=== PATIENT | male | born 1960 | race Caucasian/White ===

== ENCOUNTER → 2016-09-06 | Outpatient (CLI) | payer BC ==
[~2016-09-06] MED LIST: ALTA5CAP3 PO; ATORVASTATIN PO; FLOM5CAP PO; INVO300T PO; JANU100T PO; METF500T4 PO; PROS5TAB PO
== END ==
LOC: M SMT 15:05
PROVIDERS: ATTEND Urology
DX: Z12.5 Encounter for screening for malignant neoplasm of prostate (principal)
CPT/HCPCS: 36415; G0103

== ENCOUNTER → 2017-12-22 | Outpatient (REF) | payer BC ==
[2017-12-22 13:43] LABS: BACTERIA, URINE AUTO 2+ (NEGATIVE); RBC, URINE AUTO 15 /HPF (0-3); SQUAMOUS EPITHELIAL CELL UR AU 0 /HPF (0-6); WBC, URINE AUTO TNTC /HPF (0-3)
== END ==
LOC: M LAB REF 12:37
DX: R30.0 Dysuria (principal)
CPT/HCPCS: 81015

== ENCOUNTER → 2018-01-04 | Outpatient (REF) | payer BC ==
[2018-01-04 18:41] LABS: APPEARANCE, URINE CLOUDY (CLEAR); BACTERIA, URINE AUTO 1+ (NEGATIVE); BILIRUBIN, URINE AUTO NEGATIVE (NEGATIVE); BLOOD, URINE BLOOD 1+ (NEGATIVE); COLOR, URINE YELLOW (YELLOW); GLUCOSE, URINE (UA) AUTO 3+ mg/dL (NEGATIVE); KETONE, URINE AUTO NEGATIVE (NEGATIVE); LEUKOCYTE ESTERASE, URINE AUTO 2+ (NEGATIVE); MUCUS, URINE SMALL (NEGATIVE); NITRITE, URINE AUTO NEGATIVE (NEGATIVE); PROTEIN, URINE AUTO NEGATIVE (NEGATIVE); RBC, URINE AUTO 3 /HPF (0-3); SPECIFIC GRAVITY URINE AUTO 1.026 (1.002-1.035); SQUAMOUS EPITHELIAL CELL UR AU 0 /HPF (0-6); UROBILINOGEN, URINE AUTO 0.2 mg/dL (0.0-2.0); WBC, URINE AUTO TNTC /HPF (0-3)
== END ==
LOC: M SMT 17:45
DX: R30.0 Dysuria (principal)
CPT/HCPCS: 81001

== ENCOUNTER → 2018-12-20 | Outpatient (CLI) | payer BC ==
[~2018-12-20] MED LIST changes: +ALTA1CAP3 PO; -ALTA5CAP3 PO; +FLOM0.4C39 PO; -FLOM5CAP PO; +METF-791 PO; -METF500T4 PO
--- NOTE | 2018-12-20 14:43 | REP ---
MRI lumbar spine without contrast: History: Low back pain and right leg pain. Comparison MRI study of the lumbar spine is from January 08, 2016. Technique: Sagittal and axial T1 and T2-weighted scans are acquired in the usual fashion with and without fat saturation. Sequences include spin echo, turbo spin-echo, and STIR imaging sequences. MRI findings: There is straightening of the normal lumbar lordosis. Cortical and medullary bone signal intensity are normal. Vertebral body heights are preserved. No extra vertebral abnormality is observed. At the L5-S1 level, the previously noted right posterior disc protrusion is again seen. It is larger today. It displaces the right S1 root sleeve significantly in a dorsal direction. The disc protrusion measures 14 mm in right to left dimension by 10 mm anterior to posterior by 12 mm cranial to caudal. There is mild right foraminal narrowing due to disc bulging and facet hypertrophy. This is unchanged. At L4-5, there is mild central canal stenosis due to diffuse disc bulging, ligamentum flavum and facet hypertrophy, and developmentally somewhat short pedicles. The disc bulging is somewhat more pronounced as well compared to the prior study at the L4-5 level. The mid line AP dimension of the thecal sac at L4-5 is 6.2 mm. There is facet hypertrophy bilaterally. No foraminal narrowing is seen. At L3-4, there is mild central canal stenosis due to diffuse disc bulging and minimal ligamentum flavum hypertrophy. No foraminal narrowing is seen. The findings at L3-4 are felt to be unchanged. At L2-3, there is mild diffuse disc bulging. No central canal stenosis or foraminal narrowing is seen. No disc protrusion is noted. The L1-2 disc is somewhat narrowed. There is ligamentum flavum hypertrophy on the left. No central canal stenosis or foraminal narrowing is seen. The tip of the conus medullaris is normal in position and appearance at T12. Impression: The previously noted right posterior disc protrusion at L5-S1 is larger today with significant compression of the thecal sac and the right S1 root. There is increased L4-5 disc bulging diffusely producing central canal stenosis which is somewhat more prominent as well. Otherwise unchanged. Electronically Signed by Rk Pavon MD 12/20/2018 04:03 P
== END ==
LOC: M RAD 09:10
PROVIDERS: ATTEND Nurse Practitioner Family
DX: M51.26 Other intervertebral disc displacement, lumbar region (principal)